=== PATIENT | female | born 1970 | race Caucasian/White ===

== ENCOUNTER → 2018-03-22 | Outpatient (CLI) | payer BC ==
--- NOTE | 2018-03-23 09:15 | MAM ---
EXAM DESCRIPTION: 3D Screening BILATERAL : Digital Mammography. CLINICAL HISTORY: 47 years Female screening . No complaints. No personal or family history of breast cancer. Childbirth. Premenopausal. No HRT.. Lifetime risk of developing breast cancer (Tyrer-Cuzick model)(%): 0.3. COMPARISON: 2-D digital screening bilateral mammography 10/04/2014.. TECHNIQUE: Bilateral CC and MLO projection full-field images, digital tomosynthesis mammographic technique. Bilateral digital 2-D full-field MLO images. CAD not available for tomosynthesis or 2-D images. FINDINGS: The breast parenchymal density pattern is: Heterogeneously dense breast tissue, which may obscure small masses. No skin thickening or nipple retraction. Solitary microcalcification bilateral. Anterior intramammary lymph nodes bilaterally. Right axillary lymph node. No new focal, stellate mass or density, focal asymmetry , and no suspicious microcalcifications bilaterally. Stable mammograms compared to prior study. Taking into account, differences in mammographic technique. IMPRESSION: Benign exam. BIRAD CATEGORY: 2 BENIGN FINDINGS. RECOMMENDATIONS: FOLLOW UP: Routine digital bilateral mammographic screening, one year interval from March 2018. Written communication explaining the IMPRESSION and follow-up, will be mailed to the patient and referring health care provider. According to the [employer], yearly mammograms are recommended starting at age 40 and continuing as long as a woman is in good health. Any breast change noted on a breast self-exam should be reported promptly to the patient's healthcare provider. Breast MRI is recommended for women with an approximately 20-25% or greater lifetime risk of breast cancer, including women with a strong family history of breast or ovarian cancer and women who have been treated for Hodgkin's disease. A negative mammographic report should not delay tissue diagnosis in patients with significant clinical history or physical findings. Extremely dense breast tissue limits the sensitivity of digital mammography. Electronically signed by: Osmani Portillo MD 03/23/2018 9:14 AM [employer]
== END ==
LOC: MAMMO 12:47
PROVIDERS: ATTEND Nurse Practitioner Acute Care
DX: Z12.31 Encounter for screening mammogram for malignant neoplasm of breast (principal)

== ENCOUNTER → 2019-09-02 | Outpatient (CLI) | payer BC | LOC: GMAJ 09:15 | PROVIDERS: ATTEND Family Medicine | DX: E61.1 Iron deficiency (principal); I10 Essential (primary) hypertension; E78.00 Pure hypercholesterolemia, unspecified ==

== ENCOUNTER → 2020-04-04 | Outpatient (CLI) | payer OTHER | LOC: GMAJ 15:12 | PROVIDERS: ATTEND Family Medicine | DX: I10 Essential (primary) hypertension (principal) ==

== ENCOUNTER 2020-04-05 05:32 | Day surgery (SDC) | payer BC, OTHER ==
[2020-04-05] MEDS ORDERED: LACTATED RINGERS 1,000 ML ONE (06:41)
[2020-04-05] MEDS ORDERED: LIDOCAINE 1% 10 ML VIAL INJ ONE (07:00)
[2020-04-05] MEDS ORDERED: PROPOFOL 200 MG/20 ML VIAL IV ONE (07:00)
[2020-04-05 09:58] VITALS: BP 125/79; TEMP 97.5; O2SAT 100
--- NOTE | 2020-04-05 10:16 | OP ---
DATE OF PROCEDURE: 04/05/20 PREOPERATIVE DIAGNOSIS: 1. Colon screening. POSTOPERATIVE DIAGNOSIS: 1. Single polyp. PROCEDURE: 1. Colonoscopy. SURGEON: Eddie Amaral MD ANESTHESIA: General, Wilbur Bird CRNA. PROCEDURE: General anesthesia was induced in the lateral position. Digital rectal exam was normal. The colonoscope was inserted and advanced to the cecum without difficulty as identified by the terminal ileum and ileocecal valve. Upon withdrawal, the ascending, transverse and descending colon was normal. One small polyp was seen in the sigmoid colon on a fold. We took biopsies of it. Otherwise, the exam was normal. We will see her back in the office for biopsy results. #[id number] cc: Eddie Brandt MD [facility]
== END 2020-04-05 09:55 | disposition home or self-care (01) ==
LOC: AMB 05:32
PROVIDERS: ATTEND Surgery
DX: Z12.11 Encounter for screening for malignant neoplasm of colon (principal); K63.5 Polyp of colon; D64.9 Anemia, unspecified; I10 Essential (primary) hypertension; Z88.0 Allergy status to penicillin; Z79.899 Other long term (current) drug therapy
CPT/HCPCS: 00812; 45380; J3490; J7120